=== PATIENT | female | born 1975 | race American Indian/Alaskan Native ===

== ENCOUNTER 2017-06-25 10:46 | Emergency (ER) | payer MEDICAID ==
[2017-06-25 10:55] VITALS: BP 149/88
--- NOTE | 2017-06-25 11:10 | Emergency Department Report ---
ED General Adult HPI - General Chief complaint: Recheck/Abnormal Lab/Rx Stated complaint: MEDS REFILL Time Seen by Provider: 06/25/17 11:01 Source: patient Mode of arrival: Ambulatory Limitations: No Limitations - History of Present Illness -: Gradual Associated Symptoms: denies other symptoms - Related Data Previous Rx's Medication Instructions Recorded Last Taken Type Lisinopril [Prinivil] 5 mg PO DAILY #30 tablet 06/25/17 Unknown Rx hydrALAZINE [Apresoline TAB] 25 mg PO DAILY #30 tablet 06/25/17 Unknown Rx metFORMIN [Glucophage] 850 mg PO BID #60 tablet 06/25/17 Unknown Rx Allergies Allergy/AdvReac Type Severity Reaction Status Date / Time No Known Allergies Allergy Unverified 06/25/17 10:55 ED Review of Systems ROS: Stated complaint: MEDS REFILL Other details as noted in HPI Comment: here for med refill only ED Past Medical Hx - Past Medical History Previous Medical History?: Yes Hx Hypertension: Yes Hx Diabetes: Yes - Surgical History Past Surgical History?: Yes - Social History Smoking Status: Current Every Day Smoker - Medications Home Medications: Home Medications Medication Instructions Recorded Confirmed Last Taken Type Lisinopril [Prinivil] 5 mg PO DAILY #30 tablet 06/25/17 Unknown Rx hydrALAZINE [Apresoline TAB] 25 mg PO DAILY #30 tablet 06/25/17 Unknown Rx metFORMIN [Glucophage] 850 mg PO BID #60 tablet 06/25/17 Unknown Rx ED Physical Exam - General Limitations: No Limitations General appearance: alert - Head Head exam: Present: atraumatic - Eye Eye exam: Present: PERRL - ENT ENT exam: Present: mucous membranes moist - Neck Neck exam: Present: normal inspection - Respiratory Respiratory exam: Present: normal lung sounds bilaterally - Cardiovascular Cardiovascular Exam: Present: regular rate - GI/Abdominal GI/Abdominal exam: Present: soft - Rectal Rectal exam: Present: deferred - Extremities Exam Extremities exam: Present: normal inspection - Back Exam Back exam: Present: normal inspection - Neurological Exam Neurological exam: Present: alert, oriented X3, CN II-XII intact, normal gait, reflexes normal - Psychiatric Psychiatric exam: Present: normal affect, normal mood - Skin Skin exam: Present: warm, dry, intact, normal color ED Course Vital Signs 06/25/17 10:51 Temperature 98.5 F Pulse Rate 87 Respiratory 20 Rate Blood Pressure 149/88 O2 Sat by Pulse 100 Oximetry - Reevaluation(s) Reevaluation #1: 06/25/17 11:11 here w no complaints needs med refill only new to area and appnt is not until mid dec educated on med refill in er. ED Medical Decision Making - Medical Decision Making see note - Differential Diagnosis med refill Critical care attestation.: If time is entered above; I have spent that time in minutes in the direct care of this critically ill patient, excluding procedure time. ED Disposition Clinical Impression: Medication refill, Diabetes, Hypertelorism Disposition: TO HOME OR SELFCARE Is pt being admited?: No Does the pt Need Aspirin: No Condition: Stable Instructions: Diabetes Mellitus Type 2 in Adults (ED) Referrals: FELIX MONTEJO MD [Staff Physician] - 3-5 Days [facility] [Outside] - 3-5 Days [facility] [Outside] - 3-5 Days [facility] [Outside] - 3-[address] [facility] [place] [Outside] - 3-5 Days [facility] [Outside] - 3-5 Days Time of Disposition: 11:12
== END 2017-06-25 11:38 | disposition home or self-care (01) ==
LOC: ED 10:46
DX: Z76.0 Encounter for issue of repeat prescription (principal); E11.9 Type 2 diabetes mellitus without complications; Q75.2 Hypertelorism; I10 Essential (primary) hypertension; F17.200 Nicotine dependence, unspecified, uncomplicated
CPT/HCPCS: 99282

== ENCOUNTER 2017-09-11 21:57 | Emergency (ER) | payer MEDICAID ==
[2017-09-11 23:15] LABS: Basophils # (Auto) 0.1 K/mm3 (0.0-0.1); Basophils % (Auto) 1.4 % (0.0-1.8); Eosinophils # (Auto) 0.3 K/mm3 (0.0-0.4); Eosinophils % (Auto) 4.4 % (0.0-4.3); Hematocrit 35.9 % (30.3-42.9); Hemoglobin 11.2 gm/dl (10.1-14.3); Lymphocytes % (Auto) 31.5 % (13.4-35.0); Mean Corpuscular HGB Conc 31 % (30-34); Mean Corpuscular Volume 80 fl (79-97); Monocytes # (Auto) 0.5 K/mm3 (0.0-0.8); Monocytes % (Auto) 7.4 % (0.0-7.3); Platelet Count 255 K/mm3 (140-440); Red Blood Count 4.51 M/mm3 (3.65-5.03); Red Cell Distribution Width 13.5 % (13.2-15.2)
[2017-09-11 23:21] LABS: Mean Corpuscular Hemoglobin 25 pg (28-32)
[2017-09-11 23:29] LABS: BUN/Creatinine Ratio 23; Blood Urea Nitrogen 21 mg/dL (7-17); Calcium 9.2 mg/dL (8.4-10.2); Hemolysis Index 7
[2017-09-12] MEDS ORDERED: CATAPRES PO ONE (01:27)
--- NOTE | 2017-09-12 01:27 | Emergency Department Report ---
- General Chief Complaint: Extremity Injury, Lower Stated Complaint: foot pain Time Seen by Provider: 09/12/17 01:07 Source: patient Mode of arrival: Ambulatory Limitations: No Limitations - History of Present Illness Initial Comments: Patient here reports that she has left great toe wound 3 days. Reports left foot is swollen and also reports chronic swelling to lower extremity and she's been followed by her primary care and also tank truck engine mechanic. She would elevated blood pressure and she says she specifically taken hydralazine and lisinopril but has not taken. She has diabetes and reports neuropathy. Patient reports that she saw her tank truck engine mechanic earlier this month that she is scheduled to visit him next week. Pain is toward a 10 and worse with movement. Denies any drainage from wound. Patient says she was concerned and does not remember any injury. She reports her tetanus vaccine is up-to-date. Onset/Timin -: days(s) Extremity Location: Left: Foot (left great toe) Place: home Patient Tetanus UTD: Yes Context: other (unknown) Associated Symptoms: pain, loss of feeling/numbness (chronic). denies: suspect foreign body present, unable to move injured part, weakness followed by dizziness, nausea/vomiting, fever Treatments Prior to Arrival: other (clean and dressing) - Related Data Previous Rx's Medication Instructions Recorded Last Taken Type Lisinopril [Prinivil] 5 mg PO DAILY #30 tablet 06/25/17 Unknown Rx hydrALAZINE [Apresoline TAB] 25 mg PO DAILY #30 tablet 06/25/17 Unknown Rx metFORMIN [Glucophage] 850 mg PO BID #60 tablet 06/25/17 Unknown Rx Clindamycin [Clindamycin CAP] 300 mg PO Q8H 10 Days #30 cap 09/12/17 Unknown Rx Allergies Allergy/AdvReac Type Severity Reaction Status Date / Time No Known Allergies Allergy Unverified 06/25/17 10:55 ED Review of Systems ROS: Stated complaint: foot pain Other details as noted in HPI Comment: All other systems reviewed and negative Constitutional: no symptoms reported Eyes: denies: eye pain Respiratory: no symptoms reported Cardiovascular: denies: chest pain, palpitations, dyspnea on exertion, edema, syncope, paroxysmal nocturnal dyspnea Gastrointestinal: denies: abdominal pain, nausea, vomiting Musculoskeletal: arthralgia. denies: back pain Skin: other (ulcer to left great toe) Neurological: numbness, paresthesias. denies: headache, weakness, abnormal gait , vertigo ED Past Medical Hx - Past Medical History Previous Medical History?: Yes Hx Hypertension: Yes Hx Diabetes: Yes - Surgical History Past Surgical History?: Yes Additional Surgical History: FASCITIS 2016 - Family History Family history: hypertension - Social History Smoking Status: Never Smoker Substance Use Type: None - Medications Home Medications: Home Medications Medication Instructions Recorded Confirmed Last Taken Type Lisinopril [Prinivil] 5 mg PO DAILY #30 tablet 06/25/17 Unknown Rx hydrALAZINE [Apresoline TAB] 25 mg PO DAILY #30 tablet 06/25/17 Unknown Rx metFORMIN [Glucophage] 850 mg PO BID #60 tablet 06/25/17 Unknown Rx Clindamycin [Clindamycin CAP] 300 mg PO Q8H 10 Days #30 cap 09/12/17 Unknown Rx ED Physical Exam - General Limitations: No Limitations General appearance: alert, in no apparent distress - Head Head exam: Present: atraumatic, normocephalic, normal inspection - Eye Eye exam: Present: normal appearance, PERRL, EOMI Pupils: Present: normal accommodation - ENT ENT exam: Present: normal exam, normal orophraynx, mucous membranes moist - Neck Neck exam: Present: normal inspection, full ROM. Absent: tenderness, meningismus, lymphadenopathy, thyromegaly - Respiratory Respiratory exam: Present: normal lung sounds bilaterally. Absent: respiratory distress, chest wall tenderness - Cardiovascular Cardiovascular Exam: Present: regular rate, normal rhythm, normal heart sounds. Absent: systolic murmur, diastolic murmur - GI/Abdominal GI/Abdominal exam: Present: soft, normal bowel sounds. Absent: distended, tenderness, guarding, rebound, rigid - Extremities Exam Extremities exam: Present: normal inspection, full ROM, tenderness (tended to palpate left great toe), pedal edema (swelling to bilateral lower extremity, chronic), other (no clubbing or cyanosis. +2 pulses to extremities.. Patient with ulcer to left great toe). Absent: normal capillary refill, joint swelling , calf tenderness - Back Exam Back exam: Present: normal inspection, full ROM, other (ambulate without any difficulties). Absent: tenderness - Neurological Exam Neurological exam: Present: alert, oriented X3, normal gait, reflexes normal - Psychiatric Psychiatric exam: Present: normal affect, normal mood - Skin Skin exam: Present: warm, dry, normal color, erythema, other (stage II ulcer to right great toe outer distal, lateral. Approximately 2 mm.) - Expanded Skin Exam Expanded Type of lesion: Present: other (ulcer) Distribution of rash: other (left great toe) Description of rash: Present: size (approximately 2 mm), tenderness, erythematous, swelling, crusting, other (ulcer left great toe). Absent: discharge, fluctuant, indurated ED Course Vital Signs 09/11/17 09/11/17 09/12/17 22:05 22:44 01:37 Temperature 98.1 F 98.1 F Pulse Rate 95 H 100 H 100 H Respiratory 18 16 Rate Blood Pressure 184/102 184/102 184/102 Blood Pressure [Right] O2 Sat by Pulse 100 99 Oximetry 09/12/17 02:59 Temperature Pulse Rate 94 H Respiratory 17 Rate Blood Pressure Blood Pressure 159/95 [Right] O2 Sat by Pulse 100 Oximetry Vital Signs 09/11/17 09/11/17 09/12/17 22:05 22:44 01:37 Temperature 98.1 F 98.1 F Pulse Rate 95 H 100 H 100 H Respiratory 18 16 Rate Blood Pressure 184/102 184/102 184/102 Blood Pressure [Right] O2 Sat by Pulse 100 99 Oximetry 09/12/17 02:59 Temperature Pulse Rate 94 H Respiratory 17 Rate Blood Pressure Blood Pressure 159/95 [Right] O2 Sat by Pulse 100 Oximetry - Reevaluation(s) Reevaluation #1: 09/12/17 03:00 Patient given clindamycin 600 mg IM. She was also given clonidine 0.2 mg for elevated blood pressure. Blood pressure is better. ED Medical Decision Making - Lab Data Result diagrams: 09/11/17 23:05 09/11/17 23:05 Lab Results 09/11/17 09/11/17 Range/Units 23:05 23:05 WBC 6.5 (4.5-11.0) K/mm3 RBC 4.51 (3.65-5.03) M/mm3 Hgb 11.2 (10.1-14.3) gm/dl Hct 35.9 (30.3-42.9) % MCV 80 (79-97) fl MCH 25 L (28-32) pg MCHC 31 (30-34) % RDW 13.5 (13.2-15.2) % Plt Count 255 (140-440) K/mm3 Lymph % (Auto) 31.5 (13.4-35.0) % Ritchie % (Auto) 7.4 H (0.0-7.3) % Eos % (Auto) 4.4 H (0.0-4.3) % Baso % (Auto) 1.4 (0.0-1.8) % Lymph # 2.0 (1.2-5.4) K/mm3 Ritchie # 0.5 (0.0-0.8) K/mm3 Eos # 0.3 (0.0-0.4) K/mm3 Baso # 0.1 (0.0-0.1) K/mm3 Seg Neutrophils % 55.3 (40.0-70.0) % Seg Neutrophils # 3.6 (1.8-7.7) K/mm3 Sodium 138 (137-145) mmol/L Potassium 4.9 (3.6-5.0) mmol/L Chloride 100.7 (98-107) mmol/L Carbon Dioxide 26 (22-30) mmol/L Anion Gap 16 mmol/L BUN 21 H (7-17) mg/dL Creatinine 0.9 (0.7-1.2) mg/dL Estimated GFR > 60 ml/min BUN/Creatinine Ratio 23 % Glucose 137 H (65-100) mg/dL Calcium 9.2 (8.4-10.2) mg/dL - Radiology Data Radiology results: report reviewed X-ray of right foot reveal no fracture or malalignment. Degenerative arthritis , soft tissue swelling noted - Medical Decision Making ED course: He reports also the left great toe 3 days. She reports that she saw her tank truck engine mechanic earlier in August and has an appointment next week to see him. She also says her primary care doctor is in [place]. X-ray of left foot reveal no acute bony abnormalities. Patient with diabetic foot ulcer. She also had elevated blood pressure and reports that she takes hydralazine and lisinopril but hasn't taken because she said it makes her legs swell up. I discussed patient that she needs to keep a log of her blood pressure and call her primary care doctor called her tank truck engine mechanic to schedule an appointment for this week. given clindamycin 600 mg IM and clonidine 0.2 mg by mouth in emergency room. I discussed with patient that she needs to talk to her primary care doctor regarding her blood pressure medication and the reason why she is not compliant with treatment plan. Blood pressure is better. She was discharged home a prescription for clindamycin and Ultram. He was understanding of her discharge instruction, treatment plan and follow-up. Critical care attestation.: If time is entered above; I have spent that time in minutes in the direct care of this critically ill patient, excluding procedure time. ED Disposition Clinical Impression: Elevated blood pressure reading with diagnosis of hypertension, Noncompliance with medication regimen, Ulcer of left great toe due to diabetes mellitus, Bilateral edema of lower extremity Disposition: - TO HOME OR SELFCARE Is pt being admited?: No Does the pt Need Aspirin: No Condition: Stable Instructions: Diabetes Mellitus Type 2 in Adults (ED), Acute Wound Care (ED), Diabetic Foot Ulcers (ED), Hypertension (ED), Arthralgia (ED), Diabetic Hyperglycemia (ED) Additional Instructions: Please follow-up with your tank truck engine mechanic in 2 days. Call later this morning to schedule an appointment Please follow-up with your primary care physician in 2-3 days Please take your blood pressure medication as prescribed by a primary care physician as your blood pressure has been elevated. Keep a log a few blood pressure and take to primary care physician followup visit Increasing fluid intake Please keep affected area clean and dry Please follow discharge instructions on acute wound care Take antibiotic as prescribed for diabetic ulcer of left great toe Prescriptions: Clindamycin [Clindamycin CAP] 300 mg PO Q8H 10 Days #30 cap Referrals: your, primary care physician [Other] - 2-3 Days Your, Senior Manufacturing Engineer [Other] - 2-3 Days Forms: Work/School Release Form(ED)
[2017-09-12] MEDS ORDERED: CLEOCIN IM ONE (01:44)
--- NOTE | 2017-09-12 02:07 | XRay Report ---
FINAL REPORT PROCEDURE: XR FOOT 3+V LT TECHNIQUE: LEFT foot radiographs, AP, lateral, and oblique views. CPT 64342 HISTORY: left foot (1st left digit) pain/ ulcer COMPARISON: No prior studies are available for comparison. FINDINGS: Fracture (s) and/or Dislocation(s): None . Alignment: Normal . 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 Soft tissues: There is generalized soft tissue swelling of the forefoot.. Bone mineralization: Normal . Foreign bodies: None . Calcaneal spurring: None . IMPRESSION: There are no fractures or malalignments.. 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 There is generalized soft tissue swelling of the forefoot..
[2017-09-12 03:00] VITALS: BP 159/95
== END 2017-09-12 03:10 | disposition home or self-care (01) ==
LOC: ED 21:57
DX: L97.529 Non-pressure chronic ulcer of other part of left foot with unspecified severity (principal); E11.622 Type 2 diabetes mellitus with other skin ulcer; R60.0 Localized edema; Z91.14 Patient's other noncompliance with medication regimen; I10 Essential (primary) hypertension
CPT/HCPCS: 36415; 80048; 85025; 96372

== ENCOUNTER 2018-03-10 14:56 | Emergency (ER) | payer MEDICAID ==
[2018-03-10] MEDS ORDERED: CATAPRES PO ONE (18:03)
[2018-03-10] MEDS ORDERED: ASPIRIN PO ONE (18:03)
--- NOTE | 2018-03-10 18:06 | Emergency Department Report ---
Blank Doc - Documentation Documentation: Patient is a 40-year-old female past medical history of hypertension and diabetes who is presenting with some nausea. Patient states she woke up around 12 PM and soon after awakening she had an episode where she felt like she knew what she wanted to say but was unable to speak and when she was able to speak it was garbled. Patient then states that once this improved she started having some numbness in the right upper extremity of the last approximately an hour. Patient then became very nauseous and vomited. Patient states symptoms are improved at this time except for the nausea which is still there but much better than it was when she was at home. Patient denies any fevers chills chest pain shortness of breath. Patient does have a mild global headache that is persistent since the symptoms started. - Level of Consciousness 1a. Level of Consciousness: alert - LOC Questions 1b. LOC Questions: answers correctly - LOC Command 1c. LOC Commands: performs tasks correctly - Best Gaze 2. Best Gaze: normal - Visual 3. Visual: no visual loss - Facial Palsy 4. Facial Palsy: normal symmetrical movement - Motor Arm 5b. Motor Arm Right: no drift 5a. Motor Arm Left: no drift - Motor Leg 6a. Motor Leg Left: no drift 6b. Motor Leg Right: no drift - Limb Ataxia 7. Limb Ataxia: absent - Sensory 8. Sensory: normal - Best Language 9. Best Language: no aphasia - Dysarthria 10. Dysarthria: normal - Extinction and Inattention 11. Extinction/Inattention: no abnormality - Scoring Total Score: 0 Stroke Severity: No Stroke Symptoms
[2018-03-10 18:29] LABS: Basophils # (Auto) 0.1 K/mm3 (0.0-0.1); Basophils % (Auto) 0.8 % (0.0-1.8); Eosinophils # (Auto) 0.1 K/mm3 (0.0-0.4); Hematocrit 39.5 % (30.3-42.9); Lymphocytes % (Auto) 15.4 % (13.4-35.0); Mean Corpuscular HGB Conc 33 % (30-34); Mean Corpuscular Volume 78 fl (79-97); Monocytes # (Auto) 0.3 K/mm3 (0.0-0.8); Monocytes % (Auto) 3.9 % (0.0-7.3); Platelet Count 242 K/mm3 (140-440); Red Blood Count 5.04 M/mm3 (3.65-5.03); Red Cell Distribution Width 13.2 % (13.2-15.2)
[2018-03-10 18:34] LABS: Mean Corpuscular Hemoglobin 26 pg (28-32)
[2018-03-10 18:40] LABS: INR 0.81 (0.87-1.13); Partial Thromboplastin Time 28.1 Sec. (24.2-36.6)
[2018-03-10 18:43] LABS: BUN/Creatinine Ratio 21; Blood Urea Nitrogen 21 mg/dL (7-17); Calcium 9.5 mg/dL (8.4-10.2); Hemolysis Index 4
--- NOTE | 2018-03-10 21:06 | Cat Scan Report ---
FINAL REPORT EXAM: CT HEAD/BRAIN WO CON HISTORY: Stroke symptoms TECHNIQUE: 2.5 millimeter axial images from the skullbase to the vertex. Comparison: None FINDINGS: There is no evidence of an acute intracranial process, intracranial hemorrhage or mass effect. The ventricles are normal size. The visualized portions of the orbits, paranasal and mastoid sinuses are unremarkable. The bony structures are unremarkable in appearance. IMPRESSION: 1. No evidence of an acute intracranial process, intracranial hemorrhage or mass effect. If there is a clinical suspicion of acute cerebral ischemia, MRI brain may be helpful for further evaluation.
--- NOTE | 2018-03-10 21:43 | Emergency Department Report ---
<MCKENNA SOLORZANO - Last Filed: 03/11/18 07:31> ED General Adult HPI - General Chief complaint: Nausea/Vomiting/Diarrhea Stated complaint: N/V Time Seen by Provider: 03/10/18 17:50 Source: patient Mode of arrival: Ambulatory Limitations: No Limitations - History of Present Illness Initial comments: Patient is a 40-year-old female past medical history of hypertension and diabetes who is presenting with some nausea. Patient states she woke up around 12 PM and soon after awakening she had an episode where she felt like she knew what she wanted to say but was unable to speak and when she was able to speak it was garbled. Patient then states that once this improved she started having some numbness in the right upper extremity of the last approximately an hour. Patient then became very nauseous and vomited. Patient states symptoms are improved at this time except for the nausea which is still there but much better than it was when she was at home. Patient denies any fevers chills chest pain shortness of breath. Patient does have a mild global headache that is persistent since the symptoms started. Location: head Radiation: non-radiation Severity scale (0 -10): 0 Associated Symptoms: confusion (is improved), headaches (has improved), nausea/ vomiting (no vomiting) Treatments Prior to Arrival: none - Related Data Home Medications Medication Instructions Recorded Confirmed Last Taken Humulin N 10 units PRN PRN 03/11/18 03/11/18 Unknown Previous Rx's Medication Instructions Recorded Last Taken Type Lisinopril [Prinivil] 5 mg PO DAILY #30 tablet 06/25/17 Unknown Rx metFORMIN [Glucophage] 850 mg PO BID #60 tablet 06/25/17 2 Days Ago Rx ~03/09/18 Allergies Allergy/AdvReac Type Severity Reaction Status Date / Time No Known Allergies Allergy Unverified 06/25/17 10:55 ED Review of Systems ROS: Stated complaint: N/V Other details as noted in HPI Constitutional: denies: chills, fever ENT: denies: ear pain, throat pain Respiratory: denies: cough, shortness of breath, wheezing Cardiovascular: denies: chest pain, palpitations Gastrointestinal: nausea. denies: vomiting Musculoskeletal: denies: back pain, joint swelling, arthralgia Neurological: headache, numbness (around her mouth,), confusion. denies: weakness Psychiatric: denies: anxiety, depression Hematological/Lymphatic: denies: easy bleeding, easy bruising ED Past Medical Hx - Past Medical History Hx Hypertension: Yes Hx Diabetes: Yes - Surgical History Past Surgical History?: Yes Additional Surgical History: FASCITIS 2016 - Social History Smoking Status: Never Smoker - Medications Home Medications: Home Medications Medication Instructions Recorded Confirmed Last Taken Type Lisinopril [Prinivil] 5 mg PO DAILY #30 tablet 06/25/17 Unknown Rx metFORMIN [Glucophage] 850 mg PO BID #60 tablet 06/25/17 2 Days Ago Rx ~03/09/18 Humulin N 10 units PRN PRN 03/11/18 03/11/18 Unknown History ED Physical Exam - General Limitations: No Limitations General appearance: alert, in no apparent distress - Head Head exam: Present: atraumatic, normocephalic - Eye Eye exam: Present: EOMI (worse glasses) - ENT ENT exam: Present: mucous membranes moist - Neck Neck exam: Present: normal inspection, full ROM. Absent: tenderness - Respiratory Respiratory exam: Present: normal lung sounds bilaterally - Cardiovascular Cardiovascular Exam: Present: regular rate - GI/Abdominal GI/Abdominal exam: Present: soft - Extremities Exam Extremities exam: Present: full ROM - Back Exam Back exam: Present: normal inspection, full ROM - Expanded Neurological Exam Expanded Speech: Present: fluid speech Cranial nerves: EOM's Intact: Normal, Gag Reflex: Normal, Tongue Deviation: Normal, Nystagmus: Normal, Facial Palsy without Forehead Movement: Normal Cerebellar function: Finger to Nose: Normal, Heel to [place]: Normal, [place]: Normal Motor strength exam: RUE: 4, LUE: 4, RLE: 4, LLE: 4 Best Eye Response ([place]): (4) open spontaneously Best Motor Response ([place]): (6) obeys commands Best Verbal Response ([place]): (5) oriented [place] Total: 15 - Psychiatric Psychiatric exam: Present: normal affect, normal mood - Skin Skin exam: Present: warm, dry, intact, normal color. Absent: rash ED Course Vital Signs 03/10/18 03/10/18 03/10/18 15:05 18:38 18:39 Temperature 98.3 F Pulse Rate 84 76 81 Respiratory 16 13 Rate Blood Pressure 184/111 176/98 Blood Pressure [Right] O2 Sat by Pulse 99 99 Oximetry 03/10/18 03/10/18 03/10/18 18:45 19:00 19:15 Temperature Pulse Rate 80 77 71 Respiratory 16 11 L 12 Rate Blood Pressure 178/102 178/102 161/101 Blood Pressure [Right] O2 Sat by Pulse 99 98 97 Oximetry 03/10/18 03/10/18 03/10/18 19:30 19:45 20:00 Temperature Pulse Rate 74 86 83 Respiratory 11 L 12 15 Rate Blood Pressure 172/97 191/113 191/113 Blood Pressure [Right] O2 Sat by Pulse 97 98 97 Oximetry 03/11/18 03/11/18 03/11/18 02:06 07:11 08:34 Temperature Pulse Rate 88 76 76 Respiratory 18 18 Rate Blood Pressure 158/82 164/90 Blood Pressure 158/82 164/90 [Right] O2 Sat by Pulse 99 99 Oximetry 03/11/18 03/11/18 08:48 10:15 Temperature Pulse Rate 85 Respiratory 18 18 Rate Blood Pressure Blood Pressure 150/85 [Right] O2 Sat by Pulse 100 Oximetry ED Medical Decision Making - Lab Data Result diagrams: 03/10/18 18:10 03/10/18 18:10 - Radiology Data Radiology results: report reviewed, image reviewed FINAL REPORT EXAM: CT HEAD/BRAIN WO CON HISTORY: Stroke symptoms TECHNIQUE: 2.5 millimeter axial images from the skullbase to the vertex. Comparison: None FINDINGS: There is no evidence of an acute intracranial process, intracranial hemorrhage or mass effect. The ventricles are normal size. The visualized portions of the orbits, paranasal and mastoid sinuses are unremarkable. The bony structures are unremarkable in appearance. IMPRESSION: 1. No evidence of an acute intracranial process, intracranial hemorrhage or mass effect. If there is a clinical suspicion of acute cerebral ischemia, MRI brain may be helpful for further evaluation. Transcribed By: ED Dictated By: CELENA UMANZOR MD Electronically Authenticated By: CELENA UMANZOR MD Signed Date/Time: 03/10/182100 DD/ 00 TD/TT: 03/10/182100 - Medical Decision Making Patient has been evaluated by this provider as well as Dr. Fletcher. CT scan shows a possibility of a mild ischemic accident. They recommended MRI. Discussed with Dr. Arias the hospitalist to evaluate patient for possible admission for further testing. Spoke with Dr. Vargas the attending in the ER he recommends MRI/MRA of head and neck. Before patient to be discharge. I have given report to Ms. Yanick NP. She is aware that she needs a MRI/MRA. Critical care attestation.: If time is entered above; I have spent that time in minutes in the direct care of this critically ill patient, excluding procedure time. ED Disposition Clinical Impression: Hypertensive urgency, malignant, TIA (transient ischemic attack) Disposition: DC- TO HOME OR SELFCARE Condition: Stable Referrals: PRIMARY CARE, [Primary Care Provider] - 3-5 Days <TONYA FLETCHER - Last Filed: 03/11/18 12:41> ED Medical Decision Making - Lab Data Result diagrams: 03/10/18 18:10 03/10/18 18:10 - Medical Decision Making Patient has been monitored overnight and blood pressure has been decently controlled. Patient's had no further symptoms. Patient is MRI I MRA of the brain shows no acute abnormality the patient be discharged home at this time. Patient will have hydralazine added to her regimen and the patient will be followed up as outpatient setting. ED Disposition Is pt being admited?: No Does the pt Need Aspirin: No
--- NOTE | 2018-03-10 23:37 | Event Note ---
Date: 03/10/18 Patient had some numbness L side which was transient Resolved completely Labs reviewed Na [address] negative Imp Hyponatremia mild Hyperkalemia mild TIA unlikely ASA 81 mg 2 po qd Loose weight--atleast 80 lbs Insulin dosage to be adjusted by PCP
[2018-03-11] MEDS: APRESOLINE PO SCH ×2 (02:06→08:34)
[2018-03-11] MEDS ORDERED: ZESTRIL PO SCH (10:00)
--- NOTE | 2018-03-11 12:26 | Magnetic Resonance Report ---
FINAL REPORT EXAM: MR MRA HEAD WO CON HISTORY: brief aphasia and weakness right facial numbness BB: 03/11/2018 TECHNIQUE: Multiplanar multisequence brain arterial vascular MRA imaging 3-D image postprocessing. PRIORS: Head CT 03/10/2018 and brain MRI 03/11/2018 FINDINGS: Internal carotid arteries: Normal. Anterior cerebral arteries: Normal. Middle cerebral arteries: Normal. Vertebral arteries: Normal. Basilar artery: Projected in the region of the distal vertebral arteries and proximal basilar artery is a small nonspecific filling defect. Most likely consideration is artifact from developmental variation with slight distal tortuosity of the distal left vertebral artery prior to its confluence with the basilar artery. As such, it abuts the opposite vertebral artery and then moves again laterally prior to the real basilar artery origin. Posterior cerebral arteries: Normal. Occlusion: None. Vascular malformations: None. Aneurysm: None. IMPRESSION: No definite brain vascular pathology Likely artifact of developmental variation in the distal vertebral artery confluence region
--- NOTE | 2018-03-11 12:26 | Magnetic Resonance Report ---
FINAL REPORT EXAM: MR BRAIN WO CON HISTORY: brief aphasia and weakness right facial numbness BB: 03/11/2018 TECHNIQUE: Multiplanar multisequence brain MR imaging without IV contrast. PRIORS: Head CT 03/10/2018 FINDINGS: The included air filled sinuses contain no acute fluid level. The brain is without mass, mass effect, hemorrhage, or acute infarct. There is no midline shift or brain edema. There are no areas of brain restricted diffusion to suggest an acute ischemic infarct. The ventricles and sulci are age-appropriate. IMPRESSION: No acute CVA or brain mass
[2018-03-11 13:08] VITALS: BP 150/86
== END 2018-03-11 13:15 | disposition home or self-care (01) ==
LOC: ED 14:56
DX: I16.0 Hypertensive urgency (principal); G45.9 Transient cerebral ischemic attack, unspecified; I10 Essential (primary) hypertension; E11.9 Type 2 diabetes mellitus without complications
CPT/HCPCS: 36415; 70450; 70544; 70551; 80048; 82962; 84484; 85025; 85610; 85670; 85730; 93005; 93010; 96372; 99285; J1815

== ENCOUNTER 2019-09-08 16:49 | Emergency (ER) | payer MEDICAID ==
--- NOTE | 2019-09-08 19:57 | Event Note ---
ED Screening Note Date of service: 09/08/19 Time: 19:54 ED Screening Note: This is a 44 y.o. F. that presents to the ER with bleeding and laceration to right great toe. Patient states she noticed it today around 1500 today. Patient don't recall injuring foot. PMH DM2, HTN, & TIA This initial assessment/diagnostic orders/clinical plan/treatment(s) is/are subject to change based on patients health status, clinical progression and re- assessment by fellow clinical providers in the ED. Further treatment and workup at subsequent clinical providers discretion. Patient/guardian urged not to elope from the ED as their condition may be serious if not clinically assessed and managed. Initial orders include: XR right toes
[2019-09-08 20:59] VITALS: BP 142/73
--- NOTE | 2019-09-08 21:05 | XRay Report ---
RIGHT FOOT 3 VIEWS INDICATION / CLINICAL INFORMATION: laceration great toe. COMPARISON: None available. FINDINGS: There is a soft tissue wound/laceration to the medial aspect of the first toe without visualized frac ture or dislocation. Moderate degenerative arthrosis is seen within the first MTP joint. Signer Name: Marcin Cobb MD Signed: 09/08/2019 9:00 PM Workstation Name: [id number]
--- NOTE | 2019-09-08 21:11 | Emergency Department Report ---
ED General Adult HPI - General Chief complaint: Extremity Problem,Nontraumatic Stated complaint: POSS WOUND INFECTION/RT FOOT Time Seen by Provider: 09/08/19 19:53 Source: patient, EMS (EMS records not available at this time for chart review/not available at this time for chart dictation), RN notes reviewed, old records reviewed Mode of arrival: Wheelchair Limitations: No Limitations - History of Present Illness Initial comments: Patient is a 44-year-old female with a history of morbid obesity, diabetes, hypertension and reports that she is not . Presents to the ER with a complaint of accidental skin avulsion to right plantar and medial aspect of great toe, with associated bleeding, resolved with pressure, application of hard sole orthopedic shoe, and a socks. She has chronic swelling, although it is slightly worse than usual. There is no redness, pus or streaking. The patient states no fevers. She denies additional complaints. She has a private carroting machine offbearer up on [facility] that she follows up with. -: Sudden Location: right, lower extremity Consistency: constant Improves with: other Worsens with: other - Related Data Home Medications Medication Instructions Recorded Confirmed Last Taken Humulin N 10 units PRN PRN 03/11/18 03/11/18 Unknown Previous Rx's Medication Instructions Recorded Last Taken Type lisinopriL [Prinivil] 5 mg PO DAILY #30 tablet 06/25/17 Unknown Rx metFORMIN [Glucophage] 850 mg PO BID #60 tablet 06/25/17 2 Days Ago Rx ~03/09/18 Bacitracin Zinc Oint [Antibiotic 1 applicatio TP BID #1 tube 09/08/19 Unknown Rx Oint] Allergies Allergy/AdvReac Type Severity Reaction Status Date / Time No Known Allergies Allergy Unverified 06/25/17 10:55 ED Review of Systems ROS: Stated complaint: POSS WOUND INFECTION/RT FOOT Other details as noted in HPI Constitutional: denies: fever Cardiovascular: as per HPI Endocrine: see HPI Gastrointestinal: as per HPI Genitourinary: as per HPI Musculoskeletal: as per HPI Skin: as per HPI Neurological: as per HPI Psychiatric: as per HPI ED Past Medical Hx - Past Medical History Previous Medical History?: Yes Hx Hypertension: Yes Hx Diabetes: Yes - Surgical History Past Surgical History?: Yes Additional Surgical History: FASCITIS 2016 - Social History Smoking Status: Never Smoker Substance Use Type: None - Medications Home Medications: Home Medications Medication Instructions Recorded Confirmed Last Taken Type lisinopriL [Prinivil] 5 mg PO DAILY #30 tablet 06/25/17 Unknown Rx metFORMIN [Glucophage] 850 mg PO BID #60 tablet 06/25/17 2 Days Ago Rx ~03/09/18 Humulin N 10 units PRN PRN 03/11/18 03/11/18 Unknown History Bacitracin Zinc Oint [Antibiotic 1 applicatio TP BID #1 tube 09/08/19 Unknown Rx Oint] ED Physical Exam - General Limitations: No Limitations General appearance: alert, in no apparent distress, obese - Head Head exam: Present: atraumatic, normocephalic - Eye Eye exam: Present: normal appearance - ENT ENT exam: Present: normal exam, mucous membranes moist, normal external ear exam - Neck Neck exam: Present: normal inspection, full ROM. Absent: tenderness, meningismus - Respiratory Respiratory exam: Present: decreased breath sounds. Absent: respiratory distress - Cardiovascular Cardiovascular Exam: Present: regular rate, normal rhythm, normal heart sounds. Absent: bradycardia, tachycardia, irregular rhythm, systolic murmur, diastolic murmur, rubs, gallop - GI/Abdominal GI/Abdominal exam: Present: soft. Absent: distended, tenderness, guarding, rebound, rigid, pulsatile mass - Extremities Exam Extremities exam: Present: normal inspection, other (2+ pulses noted in the bilateral upper extremities and right lower extremity. A chronic appearing 2+ edema noted in the bilateral lower extremities. Question venous stasis noted in the right lower extremity. There is a nontender non-erythematous skin avulsion noted on the plantar medial aspect of the right great toe, with 3 cm of skin still connected. There is no pus, streaking or discharge. On the dorsal aspect of the right great toe, a nontender blister is noted). Absent: calf tenderness - Back Exam Back exam: Present: normal inspection. Absent: tenderness, CVA tenderness (R), CVA tenderness (L), paraspinal tenderness, vertebral tenderness - Neurological Exam Neurological exam: Present: alert, other (The extraocular movements are intact bilaterally. There is no facial droop. The tongue is midline. Phonating in normal sentences. Hearing is intact grossly. Walking with a steady gait. 5/5 strength with 4 extremities. Sensation intact to light touch in 4 extremities. Appropriate thought content. GCS 15.) - Psychiatric Psychiatric exam: Present: anxious - Skin Skin exam: Present: warm, dry, intact, normal color. Absent: rash ED Course Vital Signs 09/08/19 09/08/19 17:04 20:58 Temperature 98.4 F 98.3 F Pulse Rate 77 79 Respiratory 18 16 Rate Blood Pressure 174/93 Blood Pressure 142/73 [Right] O2 Sat by Pulse 99 99 Oximetry ED Medical Decision Making - Lab Data Vital Signs 09/08/19 09/08/19 17:04 20:58 Temperature 98.4 F 98.3 F Pulse Rate 77 79 Respiratory 18 16 Rate Blood Pressure 174/93 Blood Pressure 142/73 [Right] O2 Sat by Pulse 99 99 Oximetry - Radiology Data Radiology results: report reviewed, image reviewed Print Report Referring Physician: MARVA PAIGE Patient Name: GONSALO MONTIEL Date of : 1975 Sex: Female Report Date: 2019-09-08 Report Status: Finalized Findings [address] [address] XRay Report Signed Patient: GONSALO MONTIEL MR#: [id number] : 1975 Acct:[id number] Age/Sex: 44 / F ADM Date: 09/08/19 Loc: ED Attending Dr: Ordering Physician: PAT BECKWITH Date of Service: 09/08/19 Procedure(s): XR toe(s) 2+V RT Accession Number(s): [id number] cc: PAT BECKWITH Fluoro Time In Minutes: RIGHT FOOT 3 VIEWS INDICATION / CLINICAL INFORMATION: laceration great toe. COMPARISON: None available. FINDINGS: There is a soft tissue wound/laceration to the medial aspect of the first toe without visualized fracture or dislocation. Moderate degenerative arthrosis is seen within the first MTP joint. Signer Name: Marcin Cobb MD Signed: 09/08/2019 9:00 PM Workstation Name: [id number] Transcribed By: TL Dictated By: Marcin Cobb MD Electronically Authenticated By: Marcin Cobb MD Signed Date/Time: 09/08/19 2100 - Medical Decision Making Differential diagnosis, including but not limited to: Skin avulsion, dependent edema Assessment and plan: 44-year-old female with right plantar great toe skin avulsion, without evidence of active cellulitis, or infectious process. She is afebrile with reassuring vital signs. There is no active bleeding at this time. She has an outpatient carroting machine offbearer that she can follow-up with. We discussed proper wound hygiene. She can follow-up with her outpatient primary care doctor for her chronic edema. return Precautions are reviewed. Critical care attestation.: If time is entered above; I have spent that time in minutes in the direct care of this critically ill patient, excluding procedure time. ED Disposition Clinical Impression: Skin avulsion Disposition: DC- TO HOME OR SELFCARE Is pt being admited?: No Does the pt Need Aspirin: No Condition: Stable Additional Instructions: Please continue current outpatient medications. Wash the feet/wounds with gentle soap and water once every 12-24 hours. Otherwise, keep the wound dry and covered. Recommend following up with your carroting machine offbearer within the next 5-7 days. Return to emergency room right away with new, worsening or different symptoms, or symptoms. Present on initial emergency room evaluation. Recommend physical activities as tolerated, weight loss as patient's able to, avoidance of simple carbohydrates, salt, alcohol, processed foods. Referrals: ONESIMO BENSON DPM [Staff Physician] - 3-5 Days
== END 2019-09-08 21:51 | disposition home or self-care (01) ==
LOC: ED 16:49
DX: S91.101A Unspecified open wound of right great toe without damage to nail, initial encounter (principal); E66.01 Morbid (severe) obesity due to excess calories; E11.9 Type 2 diabetes mellitus without complications; I10 Essential (primary) hypertension; Z98.890 Other specified postprocedural states; Z79.899 Other long term (current) drug therapy; Z68.41 Body mass index [BMI] 40.0-44.9, adult; X58.XXXA Exposure to other specified factors, initial encounter; Y93.89 Activity, other specified; Y92.89 Other specified places as the place of occurrence of the external cause; Y99.8 Other external cause status

== ENCOUNTER 2022-02-12 23:57 | Emergency (ER) | payer MEDICAID ==
[2022-02-13 00:41] VITALS: BP 152/72
[2022-02-13 05:14] LABS: Hematocrit 30.6 % (30.3-42.9); Hemoglobin 9.4 gm/dl (10.1-14.3); Mean Corpuscular HGB Conc 31 % (30-34); Mean Corpuscular Volume 79 fl (79-97); Platelet Count 353 K/mm3 (140-440); Red Blood Count 3.88 M/mm3 (3.65-5.03); Red Cell Distribution Width 13.4 % (13.2-15.2)
[2022-02-13] MEDS ORDERED: CLINDAMYCIN 150 MG/ML VIAL 6 ML IM ONE (05:26)
--- NOTE | 2022-02-13 05:26 | Emergency Department Report ---
ED General Adult HPI - General Chief complaint: Wound/Laceration Stated complaint: ABSCESS ON RIGHT LEG Time Seen by Provider: 02/13/22 03:58 Source: patient Mode of arrival: Stretcher Limitations: No Limitations - History of Present Illness Initial comments: Boil on right lower leg since . Was seen by PCP and instructed to go to the ED. Boil popped tonight. (Accucheck 172) -: Gradual, days(s) Location: lower extremity Severity scale (0 -10): 3 Quality: aching Consistency: constant Improves with: none - Related Data Home Medications Medication Instructions Recorded Confirmed Last Taken Humulin N 10 units PRN PRN 03/11/18 03/11/18 Unknown Previous Rx's Medication Instructions Recorded Last Taken Type lisinopriL [Prinivil] 5 mg PO DAILY #30 tablet 06/25/17 Unknown Rx metFORMIN [Glucophage] 850 mg PO BID #60 tablet 06/25/17 2 Days Ago Rx ~03/09/18 Bacitracin Zinc Oint [Antibiotic 1 applicatio TP BID #1 tube 09/08/19 Unknown Rx Oint] Allergies Allergy/AdvReac Type Severity Reaction Status Date / Time No Known Allergies Allergy Unverified 06/25/17 10:55 ED Review of Systems ROS: Stated complaint: ABSCESS ON RIGHT LEG Other details as noted in HPI Constitutional: denies: chills, fever Eyes: denies: eye pain, eye discharge, vision change ENT: denies: ear pain, throat pain Respiratory: denies: cough, shortness of breath, wheezing Cardiovascular: denies: chest pain, palpitations Endocrine: no symptoms reported Gastrointestinal: denies: abdominal pain, nausea, diarrhea Genitourinary: denies: urgency, dysuria, discharge Musculoskeletal: denies: back pain, joint swelling, arthralgia Skin: denies: rash, lesions Neurological: denies: headache, weakness, paresthesias Psychiatric: denies: anxiety, depression Hematological/Lymphatic: denies: easy bleeding, easy bruising ED Past Medical Hx - Past Medical History Previous Medical History?: Yes Hx Hypertension: Yes Hx Diabetes: Yes Additional medical history: Obesity - Surgical History Past Surgical History?: Yes Additional Surgical History: NECROTIZING FASCITIS 2015 - Social History Smoking Status: Never Smoker Substance Use Type: None - Medications Home Medications: Home Medications Medication Instructions Recorded Confirmed Last Taken Type lisinopriL [Prinivil] 5 mg PO DAILY #30 tablet 06/25/17 Unknown Rx metFORMIN [Glucophage] 850 mg PO BID #60 tablet 06/25/17 2 Days Ago Rx ~03/09/18 Humulin N 10 units PRN PRN 03/11/18 03/11/18 Unknown History Bacitracin Zinc Oint [Antibiotic 1 applicatio TP BID #1 tube 09/08/19 Unknown Rx Oint] ED Physical Exam - General Limitations: No Limitations General appearance: alert, in no apparent distress - Head Head exam: Present: atraumatic, normocephalic - Eye Eye exam: Present: normal appearance - ENT ENT exam: Present: mucous membranes moist - Neck Neck exam: Present: normal inspection - Respiratory Respiratory exam: Present: normal lung sounds bilaterally. Absent: respiratory distress - Cardiovascular Cardiovascular Exam: Present: regular rate, normal rhythm. Absent: systolic murmur, diastolic murmur, rubs, gallop - GI/Abdominal GI/Abdominal exam: Present: soft, normal bowel sounds - Extremities Exam Extremities exam: Present: normal inspection - Expanded Lower Extremity Exam Right Lower Leg exam: Present: swelling, erythema - Back Exam Back exam: Present: normal inspection - Neurological Exam Neurological exam: Present: alert, oriented X3 - Psychiatric Psychiatric exam: Present: normal affect, normal mood - Skin Skin exam: Present: warm, dry, intact, normal color. Absent: rash ED Course Vital Signs 02/13/22 00:00 Temperature 98 F Pulse Rate 89 Respiratory 18 Rate Blood Pressure 152/72 O2 Sat by Pulse 100 Oximetry - I & D Right Lower Leg Type of Procedure: Simple Site: right lower leg Blade Size: 11 I & D Procedure: betadine prep, sterile drapes applied, sterile dressing applied, gauze wick placed ED Medical Decision Making - Lab Data Result diagrams: 02/13/22 05:01 Critical care attestation.: If time is entered above; I have spent that time in minutes in the direct care of this critically ill patient, excluding procedure time. ED Disposition Clinical Impression: Abscess of right leg, Elephantiasis Disposition: HOME / SELF CARE / HOMELESS Is pt being admited?: No Does the pt Need Aspirin: No Condition: Stable Instructions: Skin Abscess, Skin Abscess, Rinh-ms-Faze Additional Instructions: return in 2 dys for packing removal
[2022-02-13 05:38] LABS: Albumin 3.4 g/dL (3.9-5)
[2022-02-13 07:07] LABS: Basophils % (Manual) 0 % (0.0-1.8); Eosinophils % (Manual) 0 % (0.0-4.3); Total Cells Counted 100
[2022-02-13 07:08] LABS: Anisocytosis 1+
[2022-02-13 07:10] LABS: Hypochromasia 1+; Platelet Estimate Consistent w Auto
== END 2022-02-13 06:15 | disposition home or self-care (01) ==
LOC: ED 23:57
DX: L02.415 Cutaneous abscess of right lower limb (principal); I89.0 Lymphedema, not elsewhere classified; I10 Essential (primary) hypertension; E11.9 Type 2 diabetes mellitus without complications; Z79.899 Other long term (current) drug therapy
CPT/HCPCS: 36415; 80053; 82550; 85007; 85025; 96372; 99283

== ENCOUNTER 2022-02-14 13:11 | Emergency (ER) | payer MEDICAID ==
[2022-02-14] MEDS ORDERED: NEOMY 3.5 MG/BACIT 400 UNITS/POLY B 5000 UNITS/GM OINT PACKET TP STA (13:54)
[2022-02-14 13:56] VITALS: BP 149/83
--- NOTE | 2022-02-14 14:22 | Emergency Department Report ---
ED General Adult HPI - General Chief complaint: Wound/Laceration Stated complaint: POSSIBLE SORE INFECTION/LEG Time Seen by Provider: 02/14/22 13:49 Source: patient Mode of arrival: Ambulatory Limitations: No Limitations - History of Present Illness Initial comments: Patient presents for wound recheck today. She had an incision and drainage performed here in the ED on 02/12/2022. She denies any increase in pain or redness or swelling. She has history of elephantitis. Patient has not started taking the clindamycin as prescribed as of yet. No fever/chills/sweats or difficulty moving her limb per patient Severity scale (0 -10): 6 - Related Data Home Medications Medication Instructions Recorded Confirmed Last Taken Humulin N 10 units PRN PRN 03/11/18 03/11/18 Unknown Previous Rx's Medication Instructions Recorded Last Taken Type lisinopriL [Prinivil] 5 mg PO DAILY #30 tablet 06/25/17 Unknown Rx metFORMIN [Glucophage] 850 mg PO BID #60 tablet 06/25/17 2 Days Ago Rx ~03/09/18 Bacitracin Zinc Oint [Antibiotic 1 applicatio TP BID #1 tube 09/08/19 Unknown Rx Oint] Clindamycin [Clindamycin CAP] 300 mg PO Q8H #21 cap 02/13/22 Unknown Rx Mupirocin [Bactroban 2% OINT] 1 applic TP TID #10 tube 02/14/22 Unknown Rx Allergies Allergy/AdvReac Type Severity Reaction Status Date / Time No Known Allergies Allergy Verified 02/13/22 05:35 ED Review of Systems ROS: Stated complaint: POSSIBLE SORE INFECTION/LEG Other details as noted in HPI Constitutional: denies: chills, fever, malaise, weakness Skin: lesions. denies: change in color, pruritus ED Past Medical Hx - Past Medical History Previous Medical History?: Yes Hx Hypertension: Yes Hx Diabetes: Yes Additional medical history: Obesity, Necrotizing fascitis and reanna lower leg wounds - Surgical History Past Surgical History?: Yes Additional Surgical History: NECROTIZING FASCITIS 2016 - Social History Smoking Status: Never Smoker Substance Use Type: None - Medications Home Medications: Home Medications Medication Instructions Recorded Confirmed Last Taken Type lisinopriL [Prinivil] 5 mg PO DAILY #30 tablet 06/25/17 Unknown Rx metFORMIN [Glucophage] 850 mg PO BID #60 tablet 06/25/17 2 Days Ago Rx ~03/09/18 Humulin N 10 units PRN PRN 03/11/18 03/11/18 Unknown History Bacitracin Zinc Oint [Antibiotic 1 applicatio TP BID #1 tube 09/08/19 Unknown Rx Oint] Clindamycin [Clindamycin CAP] 300 mg PO Q8H #21 cap 02/13/22 Unknown Rx Mupirocin [Bactroban 2% OINT] 1 applic TP TID #10 tube 02/14/22 Unknown Rx ED Physical Exam - General Limitations: No Limitations General appearance: alert, in no apparent distress, obese - Head Head exam: Present: atraumatic, normocephalic - Eye Eye exam: Present: normal appearance - Cardiovascular Cardiovascular Exam: Present: regular rate - Neurological Exam Neurological exam: Present: alert, oriented X3, normal gait, other (Elephantitis dark in skin noted to right lower extremity with open wound from I&D noted to inner lower leg. No cellulitic changes noted) - Psychiatric Psychiatric exam: Present: normal affect, normal mood - Skin Skin exam: Present: warm, dry, intact, normal color. Absent: rash ED Course Vital Signs 02/14/22 13:55 Temperature 98.5 F Pulse Rate 94 H Respiratory 20 Rate Blood Pressure 149/83 [Right] O2 Sat by Pulse 97 Oximetry ED Medical Decision Making - Medical Decision Making Patient presents for wound recheck today. She had an incision and drainage performed here in the ED on 02/12/2022. She denies any increase in pain or redness or swelling. She has history of elephantitis. Patient has not started taking the clindamycin as prescribed as of yet. No fever/chills/sweats or difficulty moving her limb per patient Wound culture taken. Wound dressed and bacitracin and sterile gauze. Recommend follow-up for wound recheck with primary care doctor within 3 to 5 days. She is otherwise well-appearing, her vitals are within normal limits, she is stable for discharge home Critical care attestation.: If time is entered above; I have spent that time in minutes in the direct care of this critically ill patient, excluding procedure time. ED Disposition Clinical Impression: Wound check, abscess Disposition: HOME / SELF CARE / HOMELESS Is pt being admited?: No Condition: Stable Instructions: Wound Care, Adult Additional Instructions: Please follow-up with your primary care doctor for wound recheck in 3 to 5 days Prescriptions: Mupirocin [Bactroban 2% OINT] 1 applic TP TID #10 tube
== END 2022-02-15 02:21 | disposition home or self-care (01) ==
LOC: ED 13:11
DX: T81.49XD Infection following a procedure, other surgical site, subsequent encounter (principal); L02.91 Cutaneous abscess, unspecified; I10 Essential (primary) hypertension; E11.9 Type 2 diabetes mellitus without complications; Z79.899 Other long term (current) drug therapy; X58.XXXD Exposure to other specified factors, subsequent encounter
CPT/HCPCS: 87076; 87116; 87186; 99283